=== PATIENT | male | born 1960 | race Caucasian/White ===

== ENCOUNTER 2024-11-10 14:07 | Emergency (ER) | payer BC, SELFPAY ==
[2024-11-10 14:08] VITALS: BP 95/61; PULSE 109; RESP 17; TEMP 36.9; O2SAT 91; BMI 31.4
[2024-11-10 14:11] VITALS: BP 95/61; PULSE 101; RESP 19; TEMP 36.9; O2SAT 91
--- NOTE | 2024-11-10 14:25 | EKG12_ITS ---
Test Reason : CP Blood Pressure : */* mmHG Vent. Rate : 100 BPM Atrial Rate : 100 BPM P-R Int : 152 ms QRS Dur : 88 ms QT Int : 336 ms P-R-T Axes : 28 46 21 degrees QTcB Int : 433 ms Normal sinus rhythm Normal ECG Confirmed by SAMANTHA KWOK, REYNALDO ([id number]), editor managing newspaper HERBIE LACEY ([id number]) on 11/12/2024 8:20:27 AM Referred By: FACUNDO/ANA Confirmed By: REYNALDO SINGH MD
--- NOTE | 2024-11-10 14:25 | RAD_ITS ---
PROCEDURE: CHEST 1 VIEW (PORTABLE) REASON FOR EXAM: 63-year-old male, chest pain. TECHNIQUE: Frontal view of the chest. COMPARISON: Yesterday FINDINGS: The heart size is normal. The lungs are clear. No focal consolidation, pleural effusion or pneumothorax. Degenerative changes are identified within the thoracic spine. Bilateral glenohumeral joint arthrosis. RAD/Chest 1 View (Portable) IMPRESSION: NEGATIVE CHEST. Reading Location: [id number]
--- NOTE | 2024-11-10 14:26 | ED.VIS.CHEST ---
HPI History of Present Illness Chief Complaint: Chest Pain Detail of Chief Complaint: Chest pain Informant: patient and spouse/S.O. Narrative Narrative: Patient presents with chest discomfort a couple days ago. states that patient started getting sick about 6 days ago with bodyaches and cough and fever. He subsequently started having cough and then significant hiccups he was seen yesterday and had a chest x-ray apparently that was unremarkable and had Thorazine for his hiccups. He continues to describe a heaviness in his chest. Still having intermittent hiccups. He denies abdominal pain. He has no heart history. He has no significant medical history. He denies recent travel or surgeries. PFSH PFS Medical History no medical history Home Medications ?Medication ?Instructions ?Recorded ?Last Taken ?Type chlorpromazine 25 mg tablet 25 mg PO Q6H PRN hiccups #10 tabs 11/10/24 Unknown Rx Allergy/AdvReac Type Severity Reaction Status Date / Time No Known Allergies Allergy Verified 11/10/24 14:12 Surgical History no surgical history Social History Smoking Status: Current every day smoker tobacco type: cigarettes ROS ROS ED Review of Systems ROS Unobtainable: other Constitutional Constitutional ED: Reports lethargy; Denies chills, fever(s), sweats or weight loss Eyes Eyes: Denies blurry vision, change in vision or diplopia ENT ENT ED: Denies rhinorrhea or sore throat Cardiovascular Cardiovascular: Reports chest pain; Denies orthopnea or racing heartbeat Respiratory/Chest Respiratory/Chest: Reports cough, dyspnea and dyspnea on exertion; Denies orthopnea or sputum Gastrointestinal Gastrointestinal: Denies abdominal pain, diarrhea, nausea or vomiting Genitourinary Genitourinary ED: Denies dysuria, hematuria or urinary frequency Musculoskeletal Musculoskeletal: Denies arthralgias, back pain, myalgias or neck pain Integumentary Denies abscess, Abrasions or rash Neurologic Neurologic: Denies headache(s) or weakness Psychiatric Psychiatric: Denies anxiety, depression or suicidal thoughts Endocrine Endocrinology: Denies polydipsia, polyphagia or polyuria Hematologic/Lymphatic Hematologic/Lymphatic: Denies easy bleeding, easy bruising or lymphadenopathy Allergic/Immunologic Allergic/Immunologic ED: Denies mouth swelling, tongue swelling or urticaria EXAM Physical Exam Const Vital Signs: 11/10/24 14:08 11/10/24 14:11 11/10/24 14:15 Temperature 98.4 F 98.4 F Temperature Source Temporal Temporal Pulse Rate 109 H 101 H Respiratory Rate 17 19 H Respiratory Effort Normal Blood Pressure 95/61 95/61 Blood Pressure Mean 72 72 Pulse Ox 91 91 Oxygen Delivery Method Room Air Room Air 11/10/24 14:25 11/10/24 15:11 11/10/24 16:15 Temperature 98.1 F Temperature Source Oral Pulse Rate 87 85 Respiratory Rate 16 19 H Respiratory Effort Blood Pressure 107/67 102/61 Blood Pressure Mean 80 74 Pulse Ox 93 92 Oxygen Delivery Method Room Air Room Air Room Air Positive well nourished and well developed General Appearance ED: well developed and NAD HEENT Reports TM's clear and moist mucous membranes normocephalic and atraumatic; Negative for trauma or tenderness Tympanic Membrane ED: Yes TM's clear Eyes PERRL and EOMs intact bilaterally General Eye ED: Negative for pale conjunctiva or scleral icterus Neck no lymphadenopathy, supple and no JVD General: Negative for tenderness Chest Wall inspection of chest normal and palpation of chest normal Chest: Negative for tenderness Resp normal respiratory effort and clear to auscultation bilaterally Effort and Inspection: Negative for respiratory distress or pain with movement Auscultation: Negative for rhonchi, wheezes or diminished lung sounds Cardio regular rate, regular rhythm, S1 normal heart sound, S2 normal heart sound and no murmurs Peripheral Pulses: pulses 2+ throughout GI normal to inspection, nondistended, normoactive bowel sounds, soft to palpation, non-tender, non-distended and no masses Back/Spine no CVA tenderness and no thoracic nor lumbar tenderness Extremity normal to inspection General Extremety ED: Negative for edema General Extremity: Negative for edema Neuro oriented x3, CN's II-XII intact bilaterally, no sensory deficits noted and gait normal Sensorium / Orientation: awake, alert, oriented to person, oriented to place and oriented to time Motor Exam: strength 5/5 throughout and strength abnormal Psych mental status grossly normal Skin no rashes or lesions noted and no wounds MDM MDM MDM Narrative Medical decision making narrative: Patient presents with chest discomfort and recent diagnosis with influenza. He is been coughing and having hiccups. Clinically looks well. EKG sinus rhythm with a rate of 100 bpm with no acute ST segment changes. CBC with differential white count of 3.5 with hemoglobin 12.6 and platelet count of 175. Chemistries unremarkable. D-dimer elevated at 2.35. Troponin was normal at 13. Given the elevated D-dimer CT of the chest was obtained to rule out PE and this was negative for PE or infiltrate or acute process. Patient was ambulated in the department and his O2 sat maintained between 92 to 94% on room air. At this point I did offer him Thorazine and he did not want it in the department but would like some for home if his hiccups returned. Lab Data Attestation: I reviewed the patient's lab results. Labs: Laboratory Results - last 24 hr 11/10/24 14:30 WBC 3.5 L RBC 4.88 Hgb 12.6 L Hct 39.6 L MCV 81.1 MCH 25.8 L MCHC 31.8 L RDW Std Deviation 43.8 RDW Coeff of Delta 14.8 H Plt Count 175 MPV 9.2 Immature Gran % (Auto) 0.300 Neut % (Auto) 73.2 H Lymph % (Auto) 15.4 L Baldwin % (Auto) 10.5 H Eos % (Auto) 0.0 Baso % (Auto) 0.6 Absolute Neuts (auto) 2.6 Absolute Lymphs (auto) 0.54 L Nucleated RBC % 0 D-Dimer Quant (PE/DVT) 2.35 H* Sodium 135 L Potassium 3.9 Chloride 101 Carbon Dioxide 27.0 Anion Gap 7 BUN 15 Creatinine 0.97 Estim Creat Clear Calc 92.36 Est GFR (MDRD) Af Amer 100 Est GFR (MDRD) Non-Af 82 BUN/Creatinine Ratio 15.5 Glucose 122 H Calcium 8.7 Troponin I High Sens 13 Radiography Diagnostic Testing: Clinical Impression(s) from Imaging Studies Chest X-Ray 11/10/24 14:25 IMPRESSION: NEGATIVE CHEST. Reading Location: [facility] Chest CTA 11/10/24 14:46 IMPRESSION: 1. No evidence of acute pulmonary embolism. 2. Severe coronary artery calcifications. 3. Left upper pole renal calculus. One or more dose reduction techniques were used (e.g., Automated exposure control, adjustment of the mA and/or kV according to patient size, use of iterative reconstruction technique). Reading Location: [facility] 1 view chest x-ray obtained interpreted by myself as no evidence of infiltrate or pneumothorax or acute disease process EKG Initial EKG: Attestation: I personally reviewed and interpreted this EKG as follows: Comments: Sinus rhythm with rate 100 bpm with no acute ST segment changes Discharge Plan Triage Chief Complaint: Chest Pain ED Provider: Irma Cox Dx/Rx/DC Orders Clinical Impression: Influenza, Chest pain, Hiccups Instructions: ED Chest Pain, Uncertain Cause, ED Influenza (Adult), ED Hiccups Prescriptions: New chlorpromazine 25 mg tablet 25 mg PO Q6H PRN (Reason: hiccups) Qty: 10 0RF Primary Care Provider: Care Physician,No Primary Referrals: Nathan Patino MD [Med Staff - Distribution Systems Superintendent] - 3-5 Days Care Physician,No Primary [Primary Care Provider] - Print Language: Surinamese Disposition Disposition: Home, Self Care
[2024-11-10 14:34] LABS: Absolute Lymphocyte Count 0.54 X10^3/uL (0.83-4.51); Absolute Neutrophil Count 2.6 X10^3/uL (2.0-7.7); Basophil# 0.02 X10^3/uL; Basophil% 0.6 % (0-1); Hematocrit 39.6 % (40-54); Hemoglobin 12.6 g/dL (13.0-16.5); Lymphocyte # 0.54 X10^3/ul (0.83-4.51); Lymphocyte % 15.4 % (19-41); Mean Corp Hgb Conc 31.8 g/dL (32-36); Mean Corpuscular Hgb 25.8 pg (27.0-32.0); Mean Corpuscular Volume 81.1 fL (80-94); Mean Platelet Vol. 9.2 fl (6.2-12.0); Monocyte# 0.37 X10^3/uL; Monocyte% 10.5 % (0-10); NRBC Flagged by Analyzer 0 % (0-5); Neutrophil # 2.57 X10^3/uL (2.7-7.7); Neutrophil % 73.2 % (47-70); POSITIVE DIFFERENTIAL YES; Platelet Count 175 K/mm3 (150-450); RBC Distribution Width CV 14.8 % (11.6-14.6); RBC Distribution Width SD 43.8 fl (35.1-43.9); Red Blood Count 4.88 M/mm3 (4.6-6.2); White Blood Count 3.5 K/mm3 (4.4-11.0)
[2024-11-10] MEDS: Aspirin 81 MG TAB.CHEW 324 MG PO (14:37)
[2024-11-10 14:46] LABS: D-Dimer Quantitative (DVT/PE) 2.35 FEU/ug/m (0.27-0.49)
--- NOTE | 2024-11-10 14:46 | CT_ITS ---
PROCEDURE: CTA CHEST W/WO CONTRAST REASON FOR EXAM: 63-year-old male, dyspnea, elevated D-dimer. TECHNIQUE: CTA imaging of the chest with intravenous contrast. 3D reconstructions. CONTRAST: Administered. COMPARISON: Same day chest radiograph. FINDINGS: Hardware: None. Lymph nodes: No mediastinal hilar or axillary lymphadenopathy. Heart: Normal heart size. No pericardial effusion. Severe coronary artery calcifications. RV/LV Diameter Ratio: N/A Thoracic Aorta: No thoracic aortic aneurysm or dissection. Mild calcific plaque of the thoracic aorta. Pulmonary Vessels: No evidence of acute pulmonary emboli through the major subsegmental branches. Most Proximal Level of Embolus (if embolus present): N/A Lungs and Airways: The central airways are patent. No focal consolidation, pleural effusion or pneumothorax. Mild bibasilar atelectasis. Upper Abdomen: Left upper pole renal calculus. Colonic diverticulosis. Calcific plaque of the abdominal aorta. Bones: Thoracolumbar spondylosis. Mild multilevel chronic thoracic vertebral body compression deformities. CT/CTA Chest W/WO Contrast IMPRESSION: 1. No evidence of acute pulmonary embolism. 2. Severe coronary artery calcifications. 3. Left upper pole renal calculus. One or more dose reduction techniques were used (e.g., Automated exposure contr ol, adjustment of the mA and/or kV according to patient size, use of iterative reconstruction technique). Reading Location: [id number]
[2024-11-10 15:01] LABS: Anion Gap 7 (5-15); BUN 15 mg/dL (7-18); BUN/Creat Ratio 15.5 RATIO (10-20); Calcium,Total 8.7 mg/dL (8.5-10.1); Chloride 101 mmol/L (98-107); Creatinine, Serum 0.97 mg/dL (0.70-1.30); EST Glomerular Filtration Rate 82 mL/min (>60); Est Glom Filt Rate - Afr Amer 100 mL/min (>60); Estimated Creatinine Clearance 92.36 ml/min; Glucose 122 mg/dL (74-106); Potassium 3.9 mmol/L (3.5-5.1); Sodium Level 135 mmol/L (136-145); Troponin-I HS (w/2H Reflex) 13 pg/mL (3.0-78.0)
[2024-11-10 15:11] VITALS: BP 107/67; PULSE 87; RESP 16; TEMP 36.7; O2SAT 93
[2024-11-10 15:20] VITALS: O2SAT 92
[2024-11-10 16:15] VITALS: BP 102/61; PULSE 85; RESP 19; O2SAT 92
[2024-11-10 16:30] LABS: Reflex Troponin-HS? (from REC) Y
[2024-11-10 17:05] LABS: Troponin-I HS 13 pg/mL (3.0-78.0)
== END 2024-11-10 16:48 | disposition home or self-care (01) ==
PROVIDERS: Emergency Provider Emergency Medicine; Visit Provider Emergency Medicine
DX: R07.9 Chest pain, unspecified (principal); F17.210 Nicotine dependence, cigarettes, uncomplicated; J11.1 Influenza due to unidentified influenza virus with other respiratory manifestations; R06.6 Hiccough
CPT/HCPCS: 71045; 71275; 80048; 84484; 85025; 85379; 93005; 99284; Q9967; A4216